=== PATIENT | female | born 1990 | race Caucasian/White ===

== ENCOUNTER 2019-08-31 08:42 | Emergency (ER) | payer BC, OTHER ==
[2019-08-31 08:58] VITALS: BP 119/69
--- NOTE | 2019-08-31 09:17 | UC ---
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 Was given predisone and completed course withy worsening rash. Has been using cortisone cream daily with no relief. Rash noted to b/l arms and earlobes Pleasant 29 yo female c/o rash "hives" x approx 9 days. 7 days ago was seen in local Urgent care, rx 5 days prednisone taper and topical hydrocortisone, competed on Friday (today is Friday). Arms still are itchy. Last couple days started uri "cold" symptoms (sinus congestion, cough, st). Household members with uri type sx, but no rash. No GI issues. No issues. Did have similar sx in the spring around the time of kidney surgery, etiology unk (hives) . No fever (although eyes hurt a little) / chills. No recent travel. Denies astringents. - History of Current Complaint Chief Complaint: UCGeneralIllness Stated Complaint: RASH Time Seen by Provider: 08/31/19 09:04 Hx Obtained From: Patient Pain Intensity: 0 - Allergy/Home Medications Allergies/Adverse Reactions: Allergies Allergy/AdvReac Type Severity Reaction Status Date / Time No Known Allergies Allergy Verified 08/31/19 08:50 PMH/Surg Hx/FS Hx/Imm Hx Previously Healthy: Yes - except s/p kidney removal - Surgical History Surgery Procedure, Year, and Place: Left kidney removal 03/2019 - Family History Known Family History: Positive: Non-Contributory - Social History Alcohol Use: None Substance Use Type: None Smoking Status (MU): Never Smoked Tobacco Review of Systems All Other Systems Reviewed And Are Negative: Yes Constitutional: Positive: Negative Skin: Positive: Other - see hpi Eyes: Positive: Other - see hpi ENT: Positive: Other - see hpi Respiratory: Positive: Other - see hpi Cardiovascular: Positive: Negative Gastrointestinal: Positive: Negative Genitourinary: Positive: Negative Motor: Positive: Negative Neurovascular: Positive: Negative Musculoskeletal: Positive: Negative Neurological: Positive: Negative Psychological: Positive: Negative Is Patient Immunocompromised?: No Physical Exam Triage Information Reviewed: Yes Appearance: Well-Appearing, Well-Nourished Vital Signs: Initial Vital Signs Temp 98.0 F 08/31/19 08:51 Pulse 88 08/31/19 08:51 Resp 16 08/31/19 08:51 BP 119/69 08/31/19 08:51 Pulse Ox 100 08/31/19 08:51 Vital Signs Reviewed: Yes Eye Exam: Normal ENT Exam: Other - L TM dull, rtx'd. Post pharynx mild red, uvula midline, no sores, Neck exam: Normal Neck: Positive: Supple, Nontender Respiratory Exam: Normal Respiratory: Positive: Chest non-tender, Lungs clear, Normal breath sounds, No respiratory distress, No accessory muscle use Cardiovascular Exam: Normal Cardiovascular: Positive: RRR, No Murmur, Pulses Normal, Brisk Capillary Refill Abdominal Exam: Normal Abdomen Description: Positive: Nontender Musculoskeletal Exam: Normal - gait steady Neurological Exam: Normal - grossly nonfocal Psychological Exam: Normal - conversing easily and appropriately, nad Skin Exam: Other - nondiaphoretic. good overall color Bilat arms, including hands (minimal intrigenous) + maculopapular eruption. + some evidence of excoriation. Not cellulitic. Axillae not involved. Denies rash elsewhere. Course/Dx - Course Course Of Treatment: RST negative. Will check blood work, d/w pt. She will call her pcp in [place] to arrange for f/u - this week if possible. Seek medical attention worse or new issues. Diff dx extensive, includes albeit not limited to viral exanthem, immune issue ( auto or secondary), endocrine, parasite (doubt at this time, but d/w pt nonetheless). Rx triamcinolone cream. Antihist otc. Questions as posed answered to the best of my ability. See avs. - Diagnoses Provider Diagnosis: Rash and nonspecific skin eruption Discharge ED - Sign-Out/Discharge Documenting (check all that apply): Patient Departure All imaging exams completed and their final reports reviewed: No Studies - Discharge Plan Condition: Stable Disposition: HOME Prescriptions: Triamcinolone 0.5% CREAM(NF) [Triamcinolone 0.5% CREAM*] 1 applic TOPICAL QID PRN #1 tube PRN Reason: Pruritis Patient Education Materials: Antihistamine (By mouth), Acute Rash (ED) Referrals: Paula Rader [Primary Care Provider] - Additional Instructions: Follow up with your primary care provider - THIS WEEK. Please seek medical attention for worse or new problems in the meantime. Hydrate. Avoid astringents. Your strep throat test today was negative. - Billing Disposition and Condition Condition: STABLE Disposition: Home
[2019-08-31 16:48] LABS: ABS Eosinophils 0.4 10^3/ul (0-0.6); ABS Lymphocytes 1.9 10^3/ul (1.0-4.8); ABS Neutrophils 11.8 10^3/ul (1.5-7.7); Eosinophil % 2.4 %; Hematocrit 41 % (35-47); Hemoglobin 14.2 g/dL (12.0-16.0); Lymphocyte % 12.4 %; Mean Corpuscular HGB Conc 35 g/dL (31-36); Mean Corpuscular Hemoglobin 31 pg (27-31); Mean Corpuscular Volume 88 fL (80-97); Mean Platelet Volume 8.8 fL (7.4-10.4); Platelet Count 302 10^3/uL (150-450); Red Blood Count 4.65 10^6 /uL (3.70-4.87); Red Cell Distribution Width 14 % (10-15); White Blood Count 15.1 10^3/uL (3.5-10.8)
[2019-08-31 16:56] LABS: Albumin 4.5 g/dL (3.2-5.2); Calcium 9.9 mg/dL (8.6-10.3); Potassium 4.3 mmol/L (3.5-5.0); Total Bilirubin 0.6 mg/dL (0.2-1.0)
[2019-08-31 17:02] LABS: Albumin/Globulin Ratio 1.7 (1-3); BUN/Creatinine Ratio 15.4 (8-20); C Reactive Protein 27.07 mg/L (<8.01); EGFR African American 87.8 (>60); EGFR Non-African American 72.6 (>60); Globulin 2.7 g/dL (2-4); Total Protein 7.2 g/dL (6.4-8.9)
[2019-08-31 17:26] LABS: TSH (Thyroid Stimulating Horm) 0.91 mcIU/mL (0.34-5.60)
--- NOTE | 2019-09-01 07:40 | UC ---
- Progress Note Progress Note: Please call patient to advise that lab work shows elevated white count and elevated CRP. Dr. Beck's note reviewed: aside from rash, no findings. Was advised follow up with PCP, and please ensure that this has been arranged for recheck of rash and review of labs. Otherwise normal blood count and chemistries , and normal thyroid. Course/Dx - Diagnoses Provider Diagnoses: Rash and nonspecific skin eruption Discharge ED - Sign-Out/Discharge Documenting (check all that apply): Patient Departure All imaging exams completed and their final reports reviewed: No Studies - Discharge Plan Condition: Stable Disposition: HOME Prescriptions: Triamcinolone 0.5% CREAM(NF) [Triamcinolone 0.5% CREAM*] 1 applic TOPICAL QID PRN #1 tube PRN Reason: Pruritis Patient Education Materials: Antihistamine (By mouth), Acute Rash (ED) Referrals: Paula Rader [Primary Care Provider] - Additional Instructions: Follow up with your primary care provider - THIS WEEK. Please seek medical attention for worse or new problems in the meantime. Hydrate. Avoid astringents. Your strep throat test today was negative. - Billing Disposition and Condition Condition: STABLE Disposition: Home
== END 2019-08-31 10:33 | disposition home or self-care (01) ==
LOC: UCEAST 08:42
DX: R21 Rash and other nonspecific skin eruption (principal); D72.829 Elevated white blood cell count, unspecified; R79.82 Elevated C-reactive protein (CRP)
CPT/HCPCS: 36415; 80053; 84443; 85025; 86140; 86618; 87651; 99202; G0463